=== PATIENT | female | born 1955 | race Caucasian/White ===

== ENCOUNTER → 2017-08-16 | Outpatient (CLI) | payer BC ==
--- NOTE | 2017-08-19 07:49 | MAMMOGRAPHY REPORT ---
BILATERAL DIGITAL SCREENING MAMMOGRAM TOMOSYNTHESIS WITH CAD: 08/16/2017 CLINICAL HISTORY: Routine screening. Patient has no complaints. Based on record at our institution, and a prior mammogram report dated 09/07/2015, the patient failed to follow-up for a previously arthur mmended six-month follow-up diagnostic mammogram to reassess microcalcifications in the medial left b reast. TECHNIQUE: Bilateral breast tomosynthesis in addition to standard 2D mammography was performed. [facility] study was also evaluated with a Computer Aided Detection (CAD) system. COMPARISON: Comparison is made to exams dated: 09/07/2015 mammogram, 08/30/2015 mammogram, 01/24/2012 m ammogram, 10/25/2009 mammogram - [facility], 06/22/2008, and 05/07/2006 mammogram - [facility]. BREAST COMPOSITION: The tissue of both breasts is extremely dense, which lowers the sensitivity of m ammography. FINDINGS: No new suspicious mass, architectural distortion or cluster of new, suspicious microcalcif ications is seen. Although spot magnification views were not obtained, grouped punctate microcalcifi cations are again noted in the medial, middle to posterior left breast on the full field CC view, whi ch are unchanged comparing to the 09/07/2015 and 08/30/2015 mammograms likely also stable dating back to 10/25/2009, therefore likely benign. IMPRESSION: ACR BI-RADS CATEGORY 1: NEGATIVE There is no mammographic evidence of malignancy. A 1 year screening mammogram is recommended. The pa tient will receive written notification of the results. Approximately 10% of breast cancers are not detected with mammography. A negative mammographic report should not delay biopsy if a clinically suggestive mass is present. Edda Bray M.D. ay/:08/17/2017 07:28:41 Clinical Education Consultant: Ambreen DSOUZA(Claudia)(Nash), [facility] letter sent: Normal 1/2 BI-RADS Code: ACR BI-RADS Category 1: Negative
== END | disposition home or self-care (01) ==
LOC: C.MAMM 10:31
DX: Z12.31 Encounter for screening mammogram for malignant neoplasm of breast (principal)